=== PATIENT | male | born 2000 | race Caucasian/White ===

== ENCOUNTER 2023-03-03 22:12 | Emergency (ER) | payer BC, SELFPAY ==
--- NOTE | ~2023-03-03 | CT_ITS ---
EXAMINATION: CT abdomen pelvis w con INDICATION: Abdominal pain and vomiting TECHNIQUE: Computed tomographic images of the abdomen and pelvis were obtained after the administrati on of 100 cc of Omnipaque 350 intravenous contrast. The dose-length product (DLP) was 731.78 mGy-cm. Automated exposure control and iterative reconstruction technique were employed. COMPARISON: None available FINDINGS: The lung bases are clear. The heart size is normal. The liver, spleen, pancreas, gallbladde r, and adrenal glands are normal. The kidneys are unremarkable. No pathologically enlarged abdominal or pelvic lymph nodes are identified. No free intraperitoneal gas or evidence of bowel obstruction. T he appendix is normal. There is an umbilical hernia containing fat. IMPRESSION: 1. No CT correlate for the patient's symptoms. Reviewed, dictated and finalized at location A.
[2023-03-03 22:27] VITALS: BP 136/106; PULSE 97; RESP 16; TEMP 36.8; O2SAT 100
[2023-03-03 22:38] LABS: Basophils Percent Auto 0.2 % (0.2-1.2); Eosinophils Percent Auto 0.2 % (0-4.4); Hematocrit 47.5 % (42.0-52.0); Hemoglobin 16.1 g/dL (14.0-18.0); Immature Granulocyte Absolute 0.05 K/mm3 (0.00-0.031); Immature Granulocyte Percent A 0.4 % (0-0.5); Lymphocytes Absolute Auto 0.52 K/mm3 (0.9-3.2); Lymphocytes Percent Auto 4.4 % (18.3-44.2); Mean Corpuscular HGB Conc 33.9 g/dl (32-36); Mean Corpuscular Hemoglobin 29.1 pg (26-34); Mean Corpuscular Volume 85.7 fl (80-100); Mean Platelet Volume 9.7 fl (7.4-10.4); Monocytes Absolute Auto 0.6 K/mm3 (0.1-0.6); Neutrophils Absolute Auto 10.7 K/mm3 (1.3-6.7); Neutrophils Percent Auto 89.8 % (45.5-73.1); Platelet Count Result 278 k/mm3 (150-375); Red Blood Count 5.54 M/mm3 (4.6-6.20); White Blood Count 11.9 K/mm3 (4.5-10.0)
[2023-03-03 23:04] LABS: Alanine Aminotransferase 48 U/L (6-50); Albumin Level 4.8 g/dL (3.5-5.1); Alkaline Phosphatase 49 U/L (38-126); Anion Gap 11 mmol/L (8-16); Aspartate Amino Transferase 40 U/L (17-59); Bilirubin,Total 1.5 mg/dL (0.2-1.3); Blood Urea Nitrogen 15 mg/dL (9-20); Calcium 9.3 mg/dL (8.4-10.2); Carbon Dioxide 26 mmol/L (22-30); Chloride 101 mmol/L (98-107); Estimated CRCL calculation 116 ml/min; Estimated Glomerular Filt Rate > 60; Glucose 103 mg/dL (65-110); Lipase 44 U/L (23-300); Potassium 4.2 mmol/L (3.4-5.0); Sodium 138 mmol/L (137-145)
[2023-03-04 00:15] VITALS: BP 134/70; PULSE 99; RESP 17; TEMP 37.2; O2SAT 98
--- NOTE | 2023-03-04 00:21 | ED.NAVMDI ---
HPI - Nausea/Vomiting/Diarrhea General Chief complaint: Nausea/Vomiting/Diarrhea <Charlette Walters PA-C - Last Filed: 03/04/23 03:15> Stated complaint: vomiting <Charlette Walters PA-C - Last Filed: 03/04/23 03:15> Time Seen by Provider: 03/04/23 00:11 <Charlette Walters PA-C - Last Filed: 03/04/23 03:15> Source: patient <ALEX Hyatt Last Filed: 03/04/23 03:15> Mode of arrival: ambulatory <Charlette Walters PA-C - Last Filed: 03/04/23 03:15> Limitations: no limitations <Charlette Walters PA-C - Last Filed: 03/04/23 03:15> History of Present Illness HPI Narrative: This is a 22-year-old male that presents to the emergency department for abdominal pain ongoing today. Associated with nausea and vomiting. Reports the pain is epigastric and burning in nature. Reports subjective fevers. Does report some dysuria. Denies diarrhea or hematuria. <Charlette Walters PA-C - Last Filed: 03/04/23 03:15> Related Data Allergies/Adverse reactions: Allergies Allergy/AdvReac Type Severity Reaction Status Date / Time No Known Allergies Allergy Unverified 10/17/12 19:11 <Charlette Walters PA-C - Last Filed: 03/04/23 03:15> Review of Systems Review of Systems: CONSTITUTIONAL: Reports subjective fever CARDIOVASCULAR: Denies chest pain GASTROINTESTINAL: Reports abdominal pain, nausea, vomiting. Denies diarrhea. GENITOURINARY: Reports dysuria. Denies hematuria. <Charlette Walters PA-C - Last Filed: 03/04/23 03:15> All systems reviewed & are unremarkable except as noted in HPI and below <Charlette Walters PA-C - Last Filed: 03/04/23 03:15> [facility] Past Medical History Medical History: Medical History (Updated 03/04/23 @ 03:12 by Charlette Walters PA-C) No active medical problems <Charlette Walters PA-C - Last Filed: 03/04/23 03:15> Social History Social History: Social History (Updated 03/04/23 @ 00:23 by Charlette Walters PA-C) Substance use: current Substance use type: marijuana <Charlette Walters PA-C - Last Filed: 03/04/23 03:15> Exam Narrative: GENERAL: Well-appearing, well-nourished, and in no acute distress. HEAD: Normocephalic, atraumatic. EYES: EOMI. ENT: Mucous membranes moist. CHEST: Clear to auscultation. No respiratory distress. No wheezes rales or rhonchi HEART: Regular rate and rhythm. No murmur heard. Normal peripheral pulses. ABDOMEN: Soft, nondistended, normal active bowel sounds. Tender to palpation in the epigastrium, without guarding. No CVA tenderness EXTREMITIES: Normal range of motion. No edema. SKIN: Warm, dry, no rash. NEURO: No focal deficits. Alert and oriented x3. PSYCH: Normal mood and affect <Charlette Walters PA-C - Last Filed: 03/04/23 03:15> Course Course Emergency Course: Patient and family updated on work-up and agree with plan of care <Charlette Walters PA-C - Last Filed: 03/04/23 03:15> ABRASIVE WHEEL MOLDER/PA Physician Supervision This is a was performed by both a physician and an APC. I performed all aspects of the MDM as documented w/ the following additions: 22-year-old male presenting with burning epigastric pain associated with nausea and vomiting. Workup was negative. CT abdomen pelvis was unremarkable. Patient be discharged with Zofran and primary care follow-upAll questions answered. Patient in agreement w/ disposition. <Jefferson Richards MD - Last Filed: 03/04/23 04:02> Vital Signs Vital signs: Vital Signs Temperature 98.3 F 03/03/23 22:27 Pulse Rate 97 03/03/23 22:27 Respiratory Rate 16 03/03/23 22:27 Blood Pressure 136/106 H 03/03/23 22:27 Pulse Oximetry 100 03/03/23 22:27 Oxygen Delivery Room Air 03/03/23 22:27 Temperature 99 F 03/04/23 00:15 Pulse Rate 99 03/04/23 00:15 Respiratory Rate 17 03/04/23 00:15 Blood Pressure 134/70 03/04/23 00:15 Pulse Oximetry 98 03/04/23 00:15 Oxygen Delivery Room Air 03/03/23 22:27 <Charlette Walters PA-C - Last Filed
[2023-03-04] MEDS: SODIUM CHLORIDE 0.9% IV 1,000 ML 999 ML IV CONT (00:29)
[2023-03-04] MEDS: ONDANSETRON INJ 4 MG/2 ML VIAL IV PUSH (00:29)
[2023-03-04 01:49] LABS: Appearance Urine Clear (Clear); Bacteria Urine None Seen /hpf; Bilirubin Urine Negative (Negative); Blood Urine Negative (Negative); Color Urine Yellow (Yellow); Glucose Urine UA Negative (Negative); Ketones Urine 3+ mg/dL (Negative); Leukocyte Esterase Ur Trace LEU/UL (Negative); Need Manual Microscopic Reviewed; Nitrate Urine Negative (Negative); Non Pathogenic Casts 0-2; Protein Urine 1+ mg/dL (Negative); Specific Grav Ur 1.028 (1.001-1.035); Squamous Epithelial Cell Urine None seen /hpf (Few); WBC Urine 0-5 /hpf; pH Urine 8.5 (5.0-9.0)
[2023-03-04 01:50] LABS: Add Urine Microscopic? YES
[2023-03-04 04:03] VITALS: BP 120/75; PULSE 84; RESP 19; TEMP 37.5; O2SAT 98
== END 2023-03-04 04:13 | disposition home or self-care (01) ==
PROVIDERS: Emergency Medicine; Emergency Provider Physician Assistant; PCP Family Medicine
DX: K52.9 Noninfective gastroenteritis and colitis, unspecified (principal)
CPT/HCPCS: 36415; 74177; 80053; 81001; 83690; 85025; 96361; 96374; 99284; J2405; J7030; Q9967

== ENCOUNTER 2025-04-18 07:48 | Emergency (ER) | payer OTHER, SELFPAY ==
--- OUTSIDE RECORDS SUMMARY | 2025-04-18 07:51 | XMS_ITS | Clinical Summary ---
Author Organization [facility] Address [address] [place] [address] Care Team Providers Care Offset Press Operator Apprentice Name Role Phone Tristin, Jessie Stone DO Primary Care Provider [phone] Allergies No known active allergies Medications No known medications Active Problems Problem Noted Date Diagnosed Date Obesity (BMI 30-39.9) 11/13/2023 Immunizations Immunization Administration Dates Next Due DTaP 05/31/2006,10/22/2002,01/07/2002 HPV9 04/06/2016 Hep A, 3 Dose 07/21/2003 Hep A, Pediatric 05/31/2006 Hep B, Adolescent or Pediatric 04/06/2016,2012 Hib (HbOC) 10/22/2002 IPV 05/31/2006,10/22/2002 Influenza, Unspecified 06/03/2023(Deferred: Rosaura ent Refused) MMR 04/21/2009,05/31/2006 Meningococcal Conjugate (Menveo) 05/06/2013 Tdap 05/06/2013 Varicella 04/06/2016 Social History Tobacco Use Types Packs/Day Years Used Date Smoking Tobacco: Never Smokeless Tobacco: Never Tobacco Cessation:Counseling Given: Not Answered AUDIT-C Answer Date Recorded Q1: How often do you have a drink containing alcohol? Never 11/13/2023 Q2: How many drinks containi ng alcohol do you have on a typical day when you are drinking? Patient does not drink Q3: How often do you have si x or more drinks on one occasion? Never 11/13/2023 PHQ-2 Answer Date Recorded PHQ-2 Total Score (If total score is 3 or more points, staff should administer the PHQ-9) 0 11/13/2023 Personal Safety Answer Date Recorded Getting School Help Needed Not on file 10/15 Sex and Gender Information Value Date Recorded Sex Assigned at Not on file Legal Sex Male 9:08 AM CDT Gender Identity Not on file Sexual Orientation Not on file Obstetrics History Last Filed Vital Signs Vital Sign Reading Time Taken Comments Blood Pressure 110/54 11/13/2023 3:34 PM CDT Pulse 68 11/13/2023 3:34 PM CDT Temperature 36.8 C (98.3 F) 11/13/2023 3:34 PM CDT Respiratory Rate - - Oxygen Saturation 96% 11/13/2023 3:34 PM CDT Inhaled Oxygen Concentration - - Weight 95.3 kg (210 lb) 11/13/2023 3:34 PM CDT Height 172.7 cm (5' 8) 11/13/2023 3:34 PM CDT Body Mass Index 31.93 11/13/2023 3:34 PM CDT Plan of Treatment Health Maintenance Due Date Last Done Comments Hepatitis C Screening 2001 Varicella Vaccines (2 of 2 - 13+ 2-dose series) 05/04/2016 04/06/2016 HPV Vaccines (2 - Male 2-dose series) 10/07/2016 04/06/2016 Meningococcal B Vaccine (1 of 2 - Standard) 2017 DTaP/Tdap/Td Vaccine (5 - Td or Tdap) 05/06/2023 05/06/2013, 05/31/2006, 10/22/2002, Additional history exists Covid-19 Vaccine ( season) 2024 08/07/2021, 07/17/2021 Depression Screening 11/12/2024 11/13/2023 Regular Well Visit/Exam 18-64 11/12/2024 11/13/2023 Influenza Vaccine (#1) 2025 Hepatitis B Screening Completed 04/06/2016, 013 Pneumococcal vaccine <65 Aged Out No longer eligible based on patient's age to complete this topic Insurance [facility] HMO/PPO Address: [facility] [address] [place] [address] Care Teams Offset Press Operator Apprentice Relationship Specialty Start Date End Date Jessie Crow DO PCP - General Family Medicine 11/16/23
[2025-04-18 07:54] VITALS: BP 125/55; PULSE 67; RESP 18; TEMP 36.8; O2SAT 99
--- OUTSIDE RECORDS SUMMARY | 2025-04-18 08:12 | XMS_ITS | Clinical Summary ---
Author Organization [facility] Address [address] [place] [address] Care Team Providers Care Instrumental Music Teacher Name Role Phone Tristin, Jessie Stone DO Primary Care Provider [phone] Allergies No known active allergies Medications No [...] patient's age to complete this topic Insurance [facility] HMO/PPO Address: [facility] [address] [place] [address] Care Teams Instrumental Music Teacher Relationship Specialty Start Date End Date Jessie Crow DO PCP - General Family Medicine 11/16/23
--- NOTE | 2025-04-18 08:13 | PC.NURSE ---
pt ambulatory to bathroom with specimen cup to attempt to give a urine sample.
[2025-04-18] MEDS: SODIUM CHLORIDE 0.9% IV 1,000 ML 999 ML IV CONT (08:21)
[2025-04-18] MEDS: ONDANSETRON INJ 4 MG/2 ML VIAL IV PUSH (08:22)
[2025-04-18] MEDS: KETOROLAC 30 MG/ML VIAL (*BKC) IV PUSH (08:25)
[2025-04-18 08:29] LABS: Hematocrit 44.7 % (42.0-52.0); Hemoglobin 14.6 g/dL (14.0-18.0); Immature Granulocyte Percent A 0.4 % (0-0.5); Lymphocytes Absolute Auto 2.05 K/mm3 (0.9-3.2); Mean Corpuscular HGB Conc 32.7 g/dl (32-36); Mean Corpuscular Hemoglobin 28.5 pg (26-34); Mean Corpuscular Volume 87.1 fl (80-100); Nucleated Red Blood Cells Absolute Auto 0.000 K/mm3 (0.0-0.012); Nucleated Red Blood Cells Perc 0.0 % (0.0-0.2); Platelet Count Result 264 k/mm3 (150-375); Red Blood Count 5.13 M/mm3 (4.6-6.20); White Blood Count 11.4 K/mm3 (4.5-10.0)
[2025-04-18 08:48] LABS: Alanine Aminotransferase 28 U/L (6-50); Albumin Level 4.7 g/dL (3.5-5.1); Alkaline Phosphatase 44 U/L (38-126); Anion Gap 9 mmol/L (4-12); Aspartate Amino Transferase 47 U/L (17-59); Bilirubin,Total 1.2 mg/dL (0.2-1.3); Blood Urea Nitrogen 11 mg/dL (9-20); Calcium 9.5 mg/dL (8.4-10.2); Carbon Dioxide 26 mmol/L (22-30); Chloride 101 mmol/L (98-107); Estimated CRCL calculation 98 ml/min; Estimated Glomerular Filt Rate > 60; Glucose 90 mg/dL (65-110); Potassium 4.5 mmol/L (3.4-5.0); Sodium 136 mmol/L (137-145); Total Protein 8.8 g/dL (6.3-8.2)
[2025-04-18 09:48] LABS: Add Urine Microscopic? YES; Appearance Urine Clear (Clear); Glucose Urine UA Negative (Negative); Leukocyte Esterase Ur Negative LEU/UL (Negative); Nitrate Urine Negative (Negative); Non Pathogenic Casts 0-2; Specific Grav Ur 1.024 (1.001-1.035)
--- NOTE | 2025-04-18 10:28 | ED_ITS ---
HPI - Headache General Chief Complaint: Headache Stated Complaint: HERRERA Time Seen by Provider: 04/18/25 08:03 Source: patient Mode of arrival: ambulatory Limitations: no limitations History of Present Illness HPI Narrative: 24-year-old otherwise healthy here with a complaint of headache and nausea since this morning. Patient states that he was working in the hot sun all day yesterday. He denies any fever or chills no history of trauma. MD elicited complaint: headache Onset (ago): day(s) (1) Onset description: gradually Location: frontal Severity: moderate Quality & Timing: aching Exacerbating factors: none Associated symptoms: nausea Treatments prior to arrival: none Related Data Allergies Allergy/AdvReac Type Severity Reaction Status Date / Time No Known Allergies Allergy Verified 04/18/25 07:57 Review of Systems 2 Review of Systems: All systems reviewed & are unremarkable except as noted in HPI and below Constitutional: Constitutional: Reports no additional constitutional complaints Eyes: Eyes: Reports no additional eye complaints ENT: Reports system reviewed and no additional complaints, except as documented Cardiovascular: Cardiovascular: Reports no additional cardiovascular complaints Respiratory: Respiratory: Reports no additional respiratory complaints Gastrointestinal: Gastrointestinal: Reports as per HPI Musculoskeletal: Musculoskeletal: Reports no additional musculoskeletal complaints Neurologic: Reports system reviewed and no additional complaints, except as documented PMFSH Past Medical History Medical History No active medical problems Social History Social History Substance use: current Substance use type: marijuana Exam 2 Narrative: GENERAL: Well-appearing, well-nourished, and in no acute distress. HEAD: Normocephalic, atraumatic. EYES: PERRLA and EOMI. ENT: Nares clear, no rhinorrhea or epistaxis. Mucous membranes moist. NECK: Supple. CHEST: Clear to auscultation. No respiratory distress. HEART: Regular rate and rhythm. No murmur heard. Normal peripheral pulses. ABDOMEN: Soft, nontender, nondistended, normal active bowel sounds. EXTREMITIES: Normal range of motion. No edema. SKIN: Warm, dry, no rash. NEURO: No focal deficits. Alert and oriented x3. PSYCH: Normal mood and affect. Course Course Emergency Course: Patient was given IV normal saline, Toradol and Zofran his symptoms are much improved. I did discuss about his lab work. He does feel comfortable going home advised him to rest drink more fluids as tolerated Vital Signs Vital signs: Vital Signs Temperature 36.8 C 04/18/25 07:54 Pulse Rate 67 04/18/25 07:54 Respiratory Rate 18 04/18/25 07:54 Blood Pressure 125/55 L 04/18/25 07:54 Pulse Oximetry 99 04/18/25 07:54 Oxygen Delivery Room Air 04/18/25 07:54 Temperature 36.8 C 04/18/25 07:54 Pulse Rate 67 04/18/25 07:54 Respiratory Rate 18 04/18/25 07:54 Blood Pressure 125/55 L 04/18/25 07:54 Pulse Oximetry 99 04/18/25 07:54 Oxygen Delivery Room Air 04/18/25 07:54 MDM - Headache MDM Narrative Medical decision making narrative: 24-year-old otherwise healthy here with complaint of frontal headache associated with nausea been working outside in hot sun will start IV fluids Toradol for pain control and obtain labs Differential Diagnosis Differential diagnosis: Likely migraine, tension headache and headache Medical Records Attestation: I reviewed the patient's medical records. Lab Data Attestation: I reviewed the patient's lab results. 04/18/25 08:22 04/18/25 08:22 Labs: Lab Results 04/18/25 Range/Units 08:22 WBC 11.4 H (4.5-10.0) K/mm3 RBC 5.13 (4.6-6.20) M/mm3 Hgb 14.6 (14.0-18.0) g/dL Hct 44.7 (42.0-52.0) % MCV 87.1 (80-100) fl MCH 28.5 (26-34) pg MCHC 32.7 (32-36) g/dl RDW 12.2 (11.5-14.5) % Plt Count 264 (150-375) k/mm3 MPV 9.6 (7.4-10.4) fl Immature Gran % (Auto) 0.4 (0-0.5) % Neut % (Auto) 72.5 (45.5-73.1) % Lymph % (Auto) 18.0 L (18.3-44.2) % [place] % (Auto) 7.5 (2.6-8.5) % Eos % (Auto) 1.2 (0-4.4) % Baso % (Auto) 0.4 (0.2-1.2) % Lymph # (Auto) 2.05 (0.9-3.2) K/mm3 [place] # (Auto) 0.9 H (0.1-0.6) K/mm3 Eos # (Auto) 0.1 (0-0.3) K/mm3 Baso # (Auto) 0.1 (0.0-0.1) K/mm3 Abs Immat Gran (auto) 0.04 H (0.00-0.031) K/mm3 Absolute Neuts (auto) 8.3 H (1.3-6.7) K/mm3 Absolute Nucleated RBC 0.000 (0.0-0.012) K/mm3 Nucleated RBC % 0.0 (0.0-0.2) % Sodium 136 L (137-145) mmol/L Potassium 4.5 (3.4-5.0) mmol/L Chloride 101 (98-107) mmol/L Carbon Dioxide 26 (22-30) mmol/L Anion Gap 9 (4-12) mmol/L BUN 11 (9-20) mg/dL Creatinine 1.00 (0.7-1.3) mg/dL Estim Creat Clear Calc 98 ml/min Estimated GFR > 60 (59 - ) Glucose 90 (65-110) mg/dL Calcium 9.5 (8.4-10.2) mg/dL Total Bilirubin 1.2 (0.2-1.3) mg/dL AST 47 (17-59) U/L ALT 28 (6-50) U/L Alkaline Phosphatase 44 (38-126) U/L Total Protein 8.8 H (6.3-8.2) g/dL Albumin 4.7 (3.5-5.1) g/dL Urine Color Yellow (Yellow) Urine Appearance Clear (Clear) Urine pH 8.0 (5.0-9.0) Ur Specific [place] 1.024 (1.001-1.035) Urine Protein Trace (Negative) mg/dL Urine Glucose (UA) Negative (Negative) mg/dL Urine Ketones 3+ H (Negative) mg/dL Ur Blood (Man) Negative (Negative) Urine Nitrate Negative (Negative) Urine Bilirubin Negative (Negative) Urine Urobilinogen 1.0 (<2.0) mg/dL Leukocyte Esterase Rfl Negative (Negative) LETICIA/UL Urine RBC 3-5 H (0-2) /hpf Urine WBC 0-5 (0-3) /hpf Ur Squamous Epith Cells None seen (Few) /hpf Urine Bacteria None seen /hpf Urine Casts 0-2 Discharge Plan Discharge Clinical Impression: Headache Qualifiers: Headache type: unspecified Headache chronicity pattern: acute headache Patient Disposition: Home Condition: Stable Instructions: Acute Headache (ED) Patient Language: Botswanan Prescriptions: No Action ondansetron 4 mg tablet,disintegrating 4 mg PO Q8H PRN (Reason: nausea and vomiting) Qty: 10 0RF Follow-up/Referrals: Stanislaw Rousseau MD [Physician] - PHYSICIAN NOT ON STAFF,NONSTAFF [Primary Care Provider] - Time of Disposition: 10:35
[2025-04-18 10:40] VITALS: BP 115/53; PULSE 73; RESP 18; O2SAT 100
== END 2025-04-18 10:54 | disposition home or self-care (01) ==
PROVIDERS: Emergency Provider Family Medicine
DX: R51.9 Headache, unspecified (principal)
CPT/HCPCS: 36415; 80053; 81001; 85025; 96361; 96374; 96375; 99284; J1885; J2405; J7030

== ENCOUNTER 2025-05-23 07:09 | Emergency (ER) | payer OTHER, SELFPAY ==
--- NOTE | ~2025-05-23 | XR_ITS ---
Examination: XR chest 2V Clinical History: CP Comparison: None Technique: PA and Lateral Findings: Cardiomediastinal silhouette normal size and configuration. Lungs clear. No acute bony abnormality. IMPRESSION: 1. No acute cardiopulmonary findings. Reviewed, dictated and finalized at location R.
--- NOTE | 2025-05-23 07:14 | ECG_ITS ---
Test Date: 2025-05-23 07:21:50 Measurements Intervals [place] Rate: 66 P: 60 MI: 148 QRS: 19 QRSD: 81 T: -9 QT: 378 QTc: 397 Interpretive Statements SINUS RHYTHM NORMAL ELECTROCARDIOGRAM No previous ECG available for comparison Electronically Signed On 05-23-2025 08:51:20 CDT by Francisco Javier Frias M.D.
[2025-05-23 07:15] VITALS: BP 122/67; PULSE 74; RESP 20; TEMP 36.9; O2SAT 100
[2025-05-23 07:31] VITALS: BP 119/68; PULSE 82; RESP 20; O2SAT 97
--- OUTSIDE RECORDS SUMMARY | 2025-05-23 07:31 | XMS_ITS | Clinical Summary ---
Author Organization [facility] Address [address] [place] [address] Care Team Providers Care Salesperson Burial Needs Name Role Phone Tristin, Jessie Stone DO Primary Care Provider [phone] Allergies No known active allergies Medications No [...] 05/06/2023 05/06/2013, 05/31/2006, 10/22/2002, Additional history exists Depression Screening 11/12/2024 11/13/2023 Regular Well Visit/Exam 18-64 11/12/2024 11/13/2023 Covid-19 Vaccine (3 - 2024- season) 2025 08/07/2021, 07/17/2021 Influenza Vaccine (#1) 2025 Hepatitis B Screening Completed 04/06/2016, 013 Pneumococcal vaccine <65 Aged Out No longer eligible based on patient's age to complete this topic Insurance Care Teams Salesperson Burial Needs Relationship Specialty Start Date End Date Jessie Crow DO PCP - General Family Medicine 11/16/23
[2025-05-23 07:36] LABS: Hematocrit 41.6 % (42.0-52.0); Hemoglobin 13.9 g/dL (14.0-18.0); Immature Granulocyte Percent A 0.4 % (0-0.5); Lymphocytes Absolute Auto 0.41 K/mm3 (0.9-3.2); Mean Corpuscular HGB Conc 33.4 g/dl (32-36); Mean Corpuscular Hemoglobin 28.6 pg (26-34); Mean Corpuscular Volume 85.6 fl (80-100); Nucleated Red Blood Cells Absolute Auto 0.000 K/mm3 (0.0-0.012); Nucleated Red Blood Cells Perc 0.0 % (0.0-0.2); Platelet Count Result 227 k/mm3 (150-375); Red Blood Count 4.86 M/mm3 (4.6-6.20); White Blood Count 8.1 K/mm3 (4.5-10.0)
[2025-05-23 07:49] LABS: INR 1.2; Prothrombin Time 14.6 Seconds (11.1-14.7)
[2025-05-23 07:50] LABS: Partial Thromboplastin Time 26.7 Seconds (22.3-36.8)
[2025-05-23 07:58] LABS: Alanine Aminotransferase 26 U/L (6-50); Albumin Level 4.4 g/dL (3.5-5.1); Alkaline Phosphatase 59 U/L (38-126); Anion Gap 8 mmol/L (4-12); Aspartate Amino Transferase 34 U/L (17-59); Bilirubin,Total 0.9 mg/dL (0.2-1.3); Blood Urea Nitrogen 12 mg/dL (9-20); Calcium 9.0 mg/dL (8.4-10.2); Carbon Dioxide 25 mmol/L (22-30); Chloride 102 mmol/L (98-107); Estimated CRCL calculation 98 ml/min; Estimated Glomerular Filt Rate > 60; Glucose 102 mg/dL (65-110); Lipase 52 U/L (23-300); Potassium 3.6 mmol/L (3.4-5.0); Sodium 135 mmol/L (137-145); Total Protein 8.3 g/dL (6.3-8.2)
[2025-05-23 08:07] LABS: Troponin I < 0.012 ng/mL (0.000-0.034)
[2025-05-23] MEDS: LACTATED RINGERS 1,000 ML 999 ML IV CONT (08:18)
[2025-05-23] MEDS: ONDANSETRON INJ 4 MG/2 ML VIAL IV PUSH (08:18)
--- NOTE | 2025-05-23 08:21 | ED.GENADULT ---
HPI - General Adult General Chief complaint: Chest Pain Stated complaint: n/v Time Seen by Provider: 05/23/25 07:23 History of Present Illness HPI narrative: 24-year-old male presents to the emergency department for evaluation for chest discomfort, shortness of breath and nausea and vomiting. Patient states yesterday in the morning he was having some chest tightness chest pain but in the evening he began having onset of nausea and vomiting. Patient did not take his temperature but did suspect that he was running a fever last night. Related Data Allergies Allergy/AdvReac Type Severity Reaction Status Date / Time No Known Allergies Allergy Verified 05/23/25 07:18 Review of Systems Review of Systems: All systems reviewed & are unremarkable except as noted in HPI and below PMFSH Past Medical History Medical History No active medical problems Social History Social History Substance use: current Substance use type: marijuana Exam Narrative: APPEARANCE: Well appearing, no pain, no distress, well-nourished. HEAD: normocephalic, atraumatic. EYES: PERRLA/EOMI, conjunctivae clear. NOSE: Normal no drainage EARS:TMS clear with good light reflex. THROAT: Pharynx clear, no exudate. NECK: Supple. No adenopathy, no masses. RESPIRATORY: Airway patent, respirations nonlabored. Clear to auscultation bilaterally, no rales, rhonchi, wheezing. CARDIOVASCULAR: Regular rate and rhythm without murmurs rubs or gallops. ABDOMINAL: Soft, nontender, nondistended, normal bowel sounds MUSCULOSKELETAL: Moves all extremities. Strength/ROM intact, No edema, No calf tenderness. NEURO: Alert. Cranial nerves II through XII intact. SKIN: Warm, dry. Normal Color Course Vital Signs Vital signs: Vital Signs Temperature 98.5 F 05/23/25 07:15 Pulse Rate 74 05/23/25 07:15 Respiratory Rate 20 05/23/25 07:15 Blood Pressure 122/67 05/23/25 07:15 Pulse Oximetry 100 05/23/25 07:15 Oxygen Delivery Room Air 05/23/25 07:15 Temperature 98.5 F 05/23/25 07:15 Pulse Rate 80 05/23/25 09:45 Respiratory Rate 18 05/23/25 09:45 Blood Pressure 121/62 05/23/25 09:45 Pulse Oximetry 98 05/23/25 09:45 Oxygen Delivery Room Air 05/23/25 08:40 Medical Decision Making MDM Narrative Medical decision making narrative: 24-year-old male present to the emergency department for evaluation for nausea vomiting and chest tightness. Patient is currently afebrile with no leukocytosis hemoglobin 13.9. Patient has an INR of 1.2. No acute abnormalities on his CMP troponin was negative. Patient was negative influenza RSV and for COVID. Chest x-ray shows no acute cardiopulmonary abnormality. Patient did feel improved after breathing treatment. Patient most likely has a viral etiology. Patient will be advised to follow a clear liquid diet for the next 1-3 days, provided Zofran for nausea control. Patient will also be provided a albuterol inhaler for any shortness breath. All questions concerns were addressed patient was comfortable with plan for discharge and close follow-up Differential Diagnosis Differential Diagnosis: Pulmonary embolism, pneumonia, ACS, gastritis, esophagitis, COVID, RSV, influenza Vital Signs Vital Signs: Vital Signs Temperature 98.5 F 05/23/25 07:15 Pulse Rate 74 05/23/25 07:15 Respiratory Rate 20 05/23/25 07:15 Blood Pressure 122/67 05/23/25 07:15 Pulse Oximetry 100 05/23/25 07:15 Oxygen Delivery Room Air 05/23/25 07:15 Temperature 98.5 F 05/23/25 07:15 Pulse Rate 80 05/23/25 09:45 Respiratory Rate 18 05/23/25 09:45 Blood Pressure 121/62 05/23/25 09:45 Pulse Oximetry 98 05/23/25 09:45 Oxygen Delivery Room Air 05/23/25 08:40 Lab Data Lab results reviewed: Yes I reviewed the patient's lab results. 05/23/25 07:30 05/23/25 07:30 Labs: Lab Results 05/23/25 05/23/25 Range/Units 07:30 08:29 WBC 8.1 (4.5-10.0) K/mm3 RBC 4.86 (4.6-6.20) M/mm3 Hgb 13.9 L (14.0-18.0) g/dL Hct 41.6 L (42.0-52.0) % MCV 85.6 (80-100) fl MCH 28.6 (26-34) pg MCHC 33.4 (32-36) g/dl RDW 12.2 (11.5-14.5) % Plt Count 227 (150-375) k/mm3 MPV 9.6 (7.4-10.4) fl Immature Gran % (Auto) 0.4 (0-0.5) % Neut % (Auto) 89.8 H (45.5-73.1) % Lymph % (Auto) 5.1 L (18.3-44.2) % [place] % (Auto) 4.5 (2.6-8.5) % Eos % (Auto) 0.0 (0-4.4) % Baso % (Auto) 0.2 (0.2-1.2) % Lymph # (Auto) 0.41 L (0.9-3.2) K/mm3 [place] # (Auto) 0.4 (0.1-0.6) K/mm3 Eos # (Auto) 0.0 (0-0.3) K/mm3 Baso # (Auto) 0.0 (0.0-0.1) K/mm3 Abs Immat Gran (auto) 0.03 (0.00-0.031) K/mm3 Absolute Neuts (auto) 7.2 H (1.3-6.7) K/mm3 Absolute Nucleated RBC 0.000 (0.0-0.012) K/mm3 Nucleated RBC % 0.0 (0.0-0.2) % PT 14.6 (11.1-14.7) Seconds INR 1.2 APTT 26.7 (22.3-36.8) Seconds Sodium 135 L (137-145) mmol/L Potassium 3.6 (3.4-5.0) mmol/L Chloride 102 (98-107) mmol/L Carbon Dioxide 25 (22-30) mmol/L Anion Gap 8 (4-12) mmol/L BUN 12 (9-20) mg/dL Creatinine 1.00 (0.7-1.3) mg/dL Estim Creat Clear Calc 98 ml/min Estimated GFR > 60 (59 - ) Glucose 102 (65-110) mg/dL Calcium 9.0 (8.4-10.2) mg/dL Total Bilirubin 0.9 (0.2-1.3) mg/dL AST 34 (17-59) U/L ALT 26 (6-50) U/L Alkaline Phosphatase 59 (38-126) U/L Troponin I < 0.012 (0.000-0.034) ng/mL Total Protein 8.3 H (6.3-8.2) g/dL Albumin 4.4 (3.5-5.1) g/dL Lipase 52 (23-300) U/L Influenza A (RT-PCR) Negative (Negative) Influenza B (RT-PCR) Negative (Negative) RSV (RT-PCR) Negative (Negative) SARS-CoV-2 RNA (RT-PCR) Negative (Negative) Imaging Data Radiologist's impression: Impressions Chest X-Ray 05/23/25 07:48 IMPRESSION: 1. No acute cardiopulmonary findings. ECG Data EKG #1: EKG Interpretation: normal rate, sinus rhythm, no ectopy, no ST changes, normal QRS, normal QT and NL axis Discharge Plan Discharge Clinical Impression: Chest pain, N&V (nausea and vomiting) Patient Disposition: Home Condition: Stable Instructions: Antibiotic Form, Chest Pain (ED), Clear Liquid Diet (ED), Acute Nausea and Vomiting (DC) Additional Instructions: Clear liquid diet for the next 1-3 days. Zofran as needed for nausea control. Advance diet as tolerated. Albuterol inhaler as needed for chest tightness and shortness of breath. Have close follow-up with your primary care physician. Patient Language: Indonesian Prescriptions: New albuterol sulfate 90 mcg/actuation HFA aerosol inhaler 1 puff inhalation QID Qty: 6.7 0RF ondansetron 4 mg tablet,disintegrating 4 mg PO Q8H PRN (Reason: nausea and vomiting) Qty: 14 0RF No Action ondansetron 4 mg tablet,disintegrating 4 mg PO Q8H PRN (Reason: nausea and vomiting) Qty: 10 0RF Follow-up/Referrals: PHYSICIAN NOT ON STAFF,NONSTAFF [Primary Care Provider]
[2025-05-23] MEDS: KETOROLAC 30 MG/ML VIAL (*BKC) IV PUSH (08:28)
[2025-05-23] MEDS: ALBUTEROL SULFATE NEB 2.5 MG/3 ML INH 5 MG INHALATION (08:38)
[2025-05-23 08:40] VITALS: PULSE 74; RESP 20; O2SAT 100
[2025-05-23 08:53] VITALS: PULSE 97; RESP 20
[2025-05-23 09:10] LABS: Influenza A QL RT-PCR Negative (Negative); Influenza B QL RT-PCR Negative (Negative); RSV RNA, RT-PCR Negative (Negative); SARS-CoV-2 RNA PCR Negative (Negative)
[2025-05-23 09:45] VITALS: BP 121/62; PULSE 80; RESP 18; O2SAT 98
== END 2025-05-23 10:25 | disposition home or self-care (01) ==
PROVIDERS: Emergency Provider Emergency Medicine
DX: R07.89 Other chest pain (principal); R11.2 Nausea with vomiting, unspecified; Z20.822 Contact with and (suspected) exposure to COVID-19
CPT/HCPCS: 36415; 71046; 80053; 83690; 84484; 85025; 85610; 85730; 87637; 93005; 94640; 96361; 96374; 96375; 99284; J1885; J2405; J7120